=== PATIENT | male | born 1960 | race African-American/Black ===

== ENCOUNTER 2020-10-25 07:10 | Inpatient (IN) | payer MEDICAID ==
[~2020-10-25] VITALS: Ht 198.1 cm; Wt 98.0 kg
[~2020-10-25 07:10] MED LIST: CARI250T PO; HYDR-4833 PO
[2020-10-25 08:20] LABS: Basophils # (auto) 0 10 ^3/uL (0-0.2); Basophils % (auto) 0.5 % (0.0-2.0); Eosinophils # (auto) 0.1 10 ^3/uL (0-0.8); Eosinophils % (auto) 2.6 % (0.0-7.0); Hematocrit 26.2 % (41.0-53.0); Hemoglobin 8.5 g/dL (13.5-17.5); Lymphocytes # (auto) 0.8 10 ^3/uL (0.4-5.4); Lymphocytes % (auto) 21.6 % (10.0-50.0); Mean Corpuscular Hemoglobin 30.2 pg (28.0-32.0); Mean Corpuscular Hgb Conc. 32.6 g/dL (32.0-36.0); Mean Corpuscular Volume 92.6 fL (80.0-100.0); Monocytes # (auto) 0.2 10 ^3/uL (0-1.3); Monocytes % (auto) 5.7 % (0.0-12.0); Neutrophils # (auto) 2.7 10 ^3/uL (1.6-8.6); Neutrophils % (auto) 69.6 % (37.0-80.0); Nucleated Red Blood Cells % 0.1 %; Platelet Count (auto) 115 10^3/uL (140-450); Red Blood Cells 2.83 10^6/uL (4.5-5.90); Red Cell Distribution Width 15.6 % (11.8-14.3); White Blood Cell 3.9 10^3/uL (4.4-10.8)
[2020-10-25 08:39] LABS: Alanine Aminotransferase 8 U/L (16-61); Albumin 3.4 g/dL (3.4-5.0); Anion Gap 10 (5-15); Aspartate Aminotransferase 6 U/L (15-37); BUN/Creatinine Ratio 6.9; Calcium 9.6 mg/dL (8.5-10.1); Carbon Dioxide 23 mmol/L (21-32); Chloride 102 mmol/L (98-107); GFR African American 5 mL/min; GFR Non-African American 5 mL/min; Glucose 89 mg/dL (74-106); Magnesium 2.5 mg/dL (1.6-2.6); Potassium 5.5 mmol/L (3.5-5.1); Sodium 135 mmol/L (136-145)
[2020-10-25 08:44] LABS: Alkaline Phosphatase 81 U/L (45-117); Bilirubin, Total 0.4 mg/dL (0.2-1.0); Total Protein 7.1 g/dL (6.4-8.2)
[2020-10-25 08:45] LABS: Blood Urea Nitrogen 84 mg/dL (7-18)
[2020-10-25 10:00] LABS: INR 1.07 (0.9-1.15); Partial Thromboplastin Time 28.2 sec (23.0-31.2)
[2020-10-25] MEDS ORDERED: DEXTROSE (50%) 50ML SYRG IV ONE (10:00)
[2020-10-25] MEDS ORDERED: ALBUTEROL SULF 2.5 MG/0.5ML(0.5%) NEB SOLN NEB ONE (10:00)
[2020-10-25] MEDS ORDERED: SODIUM ZIRCONIUM CYCL 10 GM PAK PO ONE (10:00)
[2020-10-25] MEDS ORDERED: InsuLIN REG 1unit/0.01ml Soln (100units/ml) IV ONE (10:00)
[2020-10-25] MEDS ORDERED: HYDROcodone-ACET 5/325MG TAB PO PRN (11:15)
[2020-10-25] MEDS ORDERED: NITROGLYCERIN 0.4 MG SL TAB SL PRN (11:15)
[2020-10-25] MEDS ORDERED: ACETAMINOPHEN 500 MG TAB PO PRN (11:15)
[2020-10-25] MEDS ORDERED: MORPHINE SULF INJ 2 MG/ML SYRINGE 1ML IV PRN ×2 (11:15)
[2020-10-25] MEDS ORDERED: ONDANSETRON HCL 4 MG/2 ML VIAL IV PRN (11:15)
[2020-10-25] MEDS ORDERED: DEXTROSE (50%) 50ML SYRG IV PRN (11:15)
[2020-10-25] MEDS: InsuLIN REG 1unit/0.01ml Soln (100units/ml) SC SCH ×3 (11:30→22:00)
[2020-10-25] MEDS: ACCU-CHEK COMFORT CURVE STRIP VI SCH ×3 (11:30→21:58)
[2020-10-25] MEDS ORDERED: LABETALOL HCL 200 MG TAB PO ONE (12:00)
[2020-10-25] MEDS ORDERED: FAMOTIDINE 20 MG TAB PO ONE (12:00)
[2020-10-25] MEDS ORDERED: SODIUM CHL 0.9% 1000 ML BAG XX ONE (15:00)
[2020-10-25] MEDS ORDERED: HYDR50TA15 PO (16:28)
[2020-10-25] MEDS ORDERED: ATO40T PO (16:28)
[2020-10-25] MEDS ORDERED: NIFE90TA49 PO (16:28)
[2020-10-25] MEDS ORDERED: SEVE800T8 PO (16:28)
[2020-10-25] MEDS ORDERED: ACET-1156 PO (16:28)
[2020-10-25] MEDS ORDERED: CALC1TAB82 PO (16:28)
[2020-10-25] MEDS ORDERED: FURO1TAB32 PO (16:28)
[2020-10-25] MEDS ORDERED: FAMO20TA10 PO (16:28)
[2020-10-25] MEDS ORDERED: LINE1TAB6 PO (16:28)
[2020-10-25] MEDS ORDERED: CIPR500S2 PO (16:28)
[2020-10-25] MEDS ORDERED: CARV25TA55 PO (16:28)
[2020-10-25] MEDS ORDERED: CLON0.2D6 PO (16:28)
[2020-10-25] MEDS ORDERED: TERA2CAP45 PO (16:28)
[2020-10-25] MEDS: hydrALAZINE HCL 20 MG/ML VL IV PRN (17:43)
[2020-10-25 17:51] LABS: % Iron Saturation 26.6 % (20-55)
[2020-10-25] MEDS ORDERED: EPOETIN ALFA 10,000 UNIT/1 ML VIAL SC ONE (21:00)
[2020-10-25] MEDS: LABETALOL HCL 200 MG TAB PO SCH (21:58)
[2020-10-26] MEDS ORDERED: cloNIDine HCL 0.1 MG TAB PO ONE (00:30)
[2020-10-26 05:00] VITALS: BP 147/56
[2020-10-26] MEDS: ACCU-CHEK COMFORT CURVE STRIP VI SCH ×4 (06:19→22:00)
[2020-10-26] MEDS: InsuLIN REG 1unit/0.01ml Soln (100units/ml) SC SCH ×4 (06:19→22:00)
[2020-10-26 06:45] LABS: Basophils # (auto) 0 10 ^3/uL (0-0.2); Eosinophils # (auto) 0.1 10 ^3/uL (0-0.8); Lymphocytes # (auto) 0.7 10 ^3/uL (0.4-5.4)
[2020-10-26 06:47] LABS: Basophils % (auto) 0.6 % (0.0-2.0); Eosinophils % (auto) 2.8 % (0.0-7.0); Hematocrit 23.6 % (41.0-53.0); Hemoglobin 7.8 g/dL (13.5-17.5); Lymphocytes % (auto) 17.4 % (10.0-50.0); Mean Corpuscular Hemoglobin 30.5 pg (28.0-32.0); Mean Corpuscular Volume 92.5 fL (80.0-100.0); Monocytes # (auto) 0.2 10 ^3/uL (0-1.3); Monocytes % (auto) 4.2 % (0.0-12.0); Platelet Count (auto) 93 10^3/uL (140-450); Red Blood Cells 2.55 10^6/uL (4.5-5.90); Red Cell Distribution Width 15.6 % (11.8-14.3)
[2020-10-26 06:59] LABS: INR 1.07 (0.9-1.15); Partial Thromboplastin Time 26.9 sec (23.0-31.2)
[2020-10-26 07:01] LABS: Albumin 3.1 g/dL (3.4-5.0); Calcium 8.7 mg/dL (8.5-10.1); Potassium 4.8 mmol/L (3.5-5.1)
[2020-10-26 07:05] LABS: BUN/Creatinine Ratio 7.3; Bilirubin, Total 0.6 mg/dL (0.2-1.0); Total Protein 6.9 g/dL (6.4-8.2)
[2020-10-26 08:30] VITALS: BP 147/67
[2020-10-26] MEDS: FAMOTIDINE 20 MG TAB PO SCH (09:38)
[2020-10-26] MEDS: LABETALOL HCL 200 MG TAB PO SCH ×2 (09:39→22:50)
[2020-10-26] MEDS: ALBUTEROL SULF 2.5 MG/0.5ML(0.5%) NEB SOLN NEB PRN ×2 (11:30→19:02)
[2020-10-26 12:31] LABS: Hepatitis A Ab IgM Negative; Hepatitis B Core IgM Negative; Hepatitis B Surface Antigen Negative (Negative); Hepatitis C Antibody Negative (Negative)
[2020-10-26 13:00] VITALS: BP 160/67
[2020-10-26 13:30] VITALS: BP 147/67
[2020-10-26] MEDS ORDERED: METOCLOPRAMIDE HCL 5MG/ml INJ 2ml VIAL IV ONE (14:45)
[2020-10-26] MEDS ORDERED: ONDANSETRON HCL 4 MG/2 ML VIAL IV PRN (15:45)
[2020-10-26 16:29] VITALS: BP 150/83
[2020-10-26] MEDS: ONDANSETRON ODT 4 MG TAB PO PRN (20:24)
[2020-10-26 22:00] VITALS: BP 167/68
[2020-10-26] MEDS ORDERED: CIPROFLOXACIN HCL 500 MG TAB PO SCH ×2 (22:00)
[2020-10-26] MEDS: LINEZOLID 600MG TABLET PO SCH (22:50)
[2020-10-27] MEDS: cloNIDine HCL 0.1 MG TAB PO PRN ×3 (00:11→13:27)
[2020-10-27] MEDS: hydrALAZINE HCL 20 MG/ML VL IV PRN ×2 (01:45→08:32)
[2020-10-27] MEDS: ONDANSETRON ODT 4 MG TAB PO PRN ×3 (01:46→17:24)
[2020-10-27 05:12] VITALS: BP 137/60
[2020-10-27] MEDS: ACCU-CHEK COMFORT CURVE STRIP VI SCH ×3 (06:47→17:18)
[2020-10-27] MEDS: InsuLIN REG 1unit/0.01ml Soln (100units/ml) SC SCH ×3 (06:47→17:00)
[2020-10-27 06:51] LABS: Basophils # (auto) 0 10 ^3/uL (0-0.2); Eosinophils # (auto) 0 10 ^3/uL (0-0.8); Eosinophils % (auto) 0.1 % (0.0-7.0); Lymphocytes # (auto) 0.9 10 ^3/uL (0.4-5.4); Monocytes # (auto) 0.3 10 ^3/uL (0-1.3); Neutrophils # (auto) 2.5 10 ^3/uL (1.6-8.6); Nucleated Red Blood Cells % 0.1 %
[2020-10-27 06:53] LABS: Basophils % (auto) 0.9 % (0.0-2.0); Hematocrit 22.5 % (41.0-53.0); Hemoglobin 7.5 g/dL (13.5-17.5); Lymphocytes % (auto) 23.5 % (10.0-50.0); Mean Corpuscular Hemoglobin 30.8 pg (28.0-32.0); Mean Corpuscular Hgb Conc. 33.4 g/dL (32.0-36.0); Mean Corpuscular Volume 92.2 fL (80.0-100.0); Monocytes % (auto) 9.1 % (0.0-12.0); Neutrophils % (auto) 66.4 % (37.0-80.0); Platelet Count (auto) 78 10^3/uL (140-450); Red Blood Cells 2.44 10^6/uL (4.5-5.90); Red Cell Distribution Width 15.7 % (11.8-14.3); White Blood Cell 3.8 10^3/uL (4.4-10.8)
[2020-10-27] MEDS ORDERED: SODIUM CHL 0.9% 1000 ML BAG XX ONE (07:00)
[2020-10-27 07:06] LABS: Potassium 5.4 mmol/L (3.5-5.1)
[2020-10-27 07:17] LABS: Albumin 3.1 g/dL (3.4-5.0); BUN/Creatinine Ratio 7.7
[2020-10-27 07:35] LABS: % Iron Saturation 27.5 % (20-55)
[2020-10-27 08:00] VITALS: BP 163/67
[2020-10-27 09:00] VITALS: BP 155/70
[2020-10-27] MEDS: LINEZOLID 600MG TABLET PO SCH (11:08)
[2020-10-27] MEDS: FAMOTIDINE 20 MG TAB PO SCH (11:09)
[2020-10-27] MEDS: LABETALOL HCL 200 MG TAB PO SCH (11:09)
[2020-10-27 12:00] VITALS: BP 174/62
[2020-10-27 16:00] VITALS: BP 159/76
[2020-10-27 17:45] VITALS: BP 149/68
[2020-10-27] MEDS ORDERED: EPOETIN ALFA 10,000 UNIT/1 ML VIAL SC ONE (21:00)
== END 2020-10-27 20:30 | disposition home or self-care (01) | DRG 425 ==
LOC: ER 07:10 → TELE 07:11 → TELE-CENTR 18:04
PROVIDERS: ADMIT Nurse Practitioner Acute Care; ATTEND Internal Medicine
PROC: 5A1D70Z Performance of Urinary Filtration, Intermittent, Less than 6 Hours Per Day (ICD-10-PCS; principal; 2020-10-25)
PROC: 05HB33Z Insertion of Infusion Device into Right Basilic Vein, Percutaneous Approach (ICD-10-PCS; 2020-10-26)
PROC: B54MZZA Ultrasonography of Right Upper Extremity Veins, Guidance (ICD-10-PCS; 2020-10-26)
PROC: 5A1D70Z Performance of Urinary Filtration, Intermittent, Less than 6 Hours Per Day (ICD-10-PCS; 2020-10-27)
DX: E87.5 Hyperkalemia (principal); I13.2 Hypertensive heart and chronic kidney disease with heart failure and with stage 5 chronic kidney disease, or end stage renal disease; I50.21 Acute systolic (congestive) heart failure; E11.621 Type 2 diabetes mellitus with foot ulcer; N18.6 End stage renal disease; D63.1 Anemia in chronic kidney disease; E11.22 Type 2 diabetes mellitus with diabetic chronic kidney disease; E87.6 Hypokalemia; J45.909 Unspecified asthma, uncomplicated; L97.519 Non-pressure chronic ulcer of other part of right foot with unspecified severity; Z20.822 Contact with and (suspected) exposure to COVID-19; Z87.891 Personal history of nicotine dependence; Z99.2 Dependence on renal dialysis; Z91.15 Patient's noncompliance with renal dialysis; Z79.4 Long term (current) use of insulin
CPT/HCPCS: 36415; 71045; 80053; 80074; 82728; 82962; 83036; 83540; 83550; 83735; 83880; 84132; 84443; 84484; 85025; 85610; 85730; 87040; 87081; 87426; 90935; 93005; 94640; 96374; 96375; G0378; J0885; J1642; J1815; Q0162

== ENCOUNTER 2020-11-21 16:30 | Emergency (ER) | payer MEDICAID ==
[~2020-11-21] VITALS: Ht 193 cm; Wt 99.8 kg
[~2020-11-21 16:30] MED LIST changes: +ACET-1156 PO; +ATO40T PO; +CALC1TAB82 PO; +CARV25TA55 PO; +CIPR500S2 PO; +CLON0.2D6 PO; +FAMO20TA10 PO; +FURO1TAB32 PO; +HYDR50TA15 PO; +LINE1TAB6 PO; +NIFE90TA49 PO; +SEVE800T8 PO; +TERA2CAP45 PO
[2020-11-21 17:15] LABS: Basophils # (auto) 0 10 ^3/uL (0-0.2); Basophils % (auto) 0.9 % (0.0-2.0); Eosinophils # (auto) 0.1 10 ^3/uL (0-0.8); Lymphocytes # (auto) 0.8 10 ^3/uL (0.4-5.4); Mean Corpuscular Volume 94.2 fL (80.0-100.0); Monocytes # (auto) 0.2 10 ^3/uL (0-1.3); Neutrophils # (auto) 2.2 10 ^3/uL (1.6-8.6); White Blood Cell 3.2 10^3/uL (4.4-10.8)
[2020-11-21 17:17] LABS: Eosinophils % (auto) 1.8 % (0.0-7.0); Hematocrit 16.6 % (41.0-53.0); Lymphocytes % (auto) 23.9 % (10.0-50.0); Mean Corpuscular Hemoglobin 31.7 pg (28.0-32.0); Mean Corpuscular Hgb Conc. 33.7 g/dL (32.0-36.0); Monocytes % (auto) 6.3 % (0.0-12.0); Neutrophils % (auto) 67.1 % (37.0-80.0); Nucleated Red Blood Cells % 0.3 %; Platelet Count (auto) 166 10^3/uL (140-450); Red Blood Cells 1.76 10^6/uL (4.5-5.90)
[2020-11-21 17:22] LABS: Red Cell Distribution Width 20.3 % (11.8-14.3)
[2020-11-21 17:26] LABS: Hemoglobin 5.6 g/dL (13.5-17.5)
[2020-11-21 17:33] LABS: Albumin 3.3 g/dL (3.4-5.0); Calcium 9.3 mg/dL (8.5-10.1); Potassium 5.1 mmol/L (3.5-5.1)
[2020-11-21 17:36] LABS: BUN/Creatinine Ratio 6.8
[2020-11-21 17:41] LABS: INR 1.13 (0.9-1.15); Partial Thromboplastin Time 24.8 sec (23.0-31.2)
[2020-11-21 17:42] LABS: Bilirubin, Total 1.2 mg/dL (0.2-1.0); Total Protein 7.7 g/dL (6.4-8.2)
[2020-11-21] MEDS ORDERED: ONDANSETRON HCL 4 MG/2 ML VIAL IV ONE (19:30)
[2020-11-21 20:59] VITALS: BP 149/53
[2020-11-21 21:15] VITALS: BP 163/49
[2020-11-21 22:23] VITALS: BP 100/24
[2020-11-21 23:01] VITALS: BP 121/47
[2020-11-22] VITALS (11 sets, daily range): BP systolic 133–157; BP diastolic 43–57
[2020-11-22 08:34] LABS: Hematocrit 23.1 % (41.0-53.0)
== END 2020-11-22 09:48 | disposition home or self-care (01) ==
LOC: ER 16:30
DX: I12.0 Hypertensive chronic kidney disease with stage 5 chronic kidney disease or end stage renal disease (principal); E11.9 Type 2 diabetes mellitus without complications; N18.6 End stage renal disease; D63.1 Anemia in chronic kidney disease; I99.8 Other disorder of circulatory system; E78.5 Hyperlipidemia, unspecified; Z79.899 Other long term (current) drug therapy
CPT/HCPCS: 36415; 36430; 73700; 80053; 83880; 84443; 84484; 85014; 85018; 85025; 85610; 85730; 86850; 86900; 86901; 86920; 96374; 99285; J2405; J7040; P9016

== ENCOUNTER 2021-01-16 06:34 | Inpatient (IN) | payer MEDICAID ==
[2021-01-16] VITALS (54 sets, daily range): BP systolic 72–202; BP diastolic 36–96
[~2021-01-16] VITALS: Ht 185.4 cm; Wt 93.1 kg
[~2021-01-16 06:34] MED LIST changes: +ASPI-498 PO; -ATO40T PO; +ATOR-47 PO; +CALC1TAB53 PO; -CALC1TAB82 PO; +CALC667C PO; -CARI250T PO; -CARV25TA55 PO; +CARV6.2551 PO; -CIPR500S2 PO; +FERR-20 PO; +FOLI1TAB6 PO; -FURO1TAB32 PO; +GABA-339 PO; -HYDR-4833 PO; +HYDR100T22 PO; -HYDR50TA15 PO; +INSU1INJ21 SC; +ISOS1TAB28 PO; -LINE1TAB6 PO; +LISI20TA28 PO; +PANT40TA57 PO
[2021-01-16] MEDS ORDERED: LIDOCAINE 2%HCL (LOCAL ANESTH.) INJ 20ML MDV ONE (07:23)
[2021-01-16] MEDS ORDERED: ANGIOMAX 250 MG VIAL IV ONE (07:58)
[2021-01-16] MEDS ORDERED: diphenhdrAMINE HCL 50 MG/1 ML VL ONE ×2 (07:59→08:47)
[2021-01-16] MEDS ORDERED: SODIUM CHL 0.9% 50 ML ONE (07:59)
[2021-01-16] MEDS ORDERED: MIDAZOLAM HCL 2MG/2ML 2ml VIAL (1mg/ml) ONE (07:59)
[2021-01-16] MEDS ORDERED: fentaNYL CITRATE 100 MCG/2 ML VL ONE (07:59)
[2021-01-16] MEDS ORDERED: IODIXANOL 320MG/ML 100ML BTL IV ONE (08:19)
[2021-01-16] MEDS ORDERED: HEPARIN SODIUM (PORCINE) 5000 UNITS/ML 1ML VIAL ONE (08:23)
[2021-01-16] MEDS ORDERED: PROTAMINE SULFATE 10 MG/ML 5ML VIAL IV ONE (08:34)
[2021-01-16] MEDS ORDERED: TICAGRELOR 90 MG TAB ONE (09:01)
[2021-01-16] MEDS ORDERED: ASPirin 81 mg TAB ONE (09:01)
[2021-01-16] MEDS ORDERED: PATIENTS OWN MEDICATION (Folic Acid 1 TAB) PO SCH (10:00)
[2021-01-16] MEDS ORDERED: FERROUS SULFATE PO SCH (10:00)
[2021-01-16] MEDS ORDERED: MORPHINE SULFATE INJECTION 2 MG/ML SYRG IV PRN (10:00)
[2021-01-16] MEDS ORDERED: ACETAMINOPHEN 325 MG TAB PO PRN (10:00)
[2021-01-16] MEDS ORDERED: NITROGLYCERIN 0.4 MG SL TAB SL PRN (10:00)
[2021-01-16] MEDS ORDERED: TERAZOSIN HCL PO SCH (10:00)
[2021-01-16] MEDS ORDERED: IPRATROPIUM BROM 0.5 MG/2.5ML INH SOL NEB ONE (10:30)
[2021-01-16] MEDS ORDERED: METOPROLOL TARTRATE 1MG/1ML-5ML VIAL IV ONE ×2 (10:30→10:31)
[2021-01-16] MEDS ORDERED: FUROSEMIDE 20 MG/2 ML VIAL IV ONE (10:30)
[2021-01-16] MEDS ORDERED: ALBUTEROL SULF 2.5 MG/0.5ML(0.5%) NEB SOLN NEB ONE (10:30)
[2021-01-16] MEDS ORDERED: FUROSEMIDE 20 MG/2 ML VIAL ONE (10:31)
[2021-01-16] MEDS ORDERED: LORazepam 2MG/ML-1ML VIAL ONE (10:35)
[2021-01-16] MEDS ORDERED: hydrALAZINE HCL 20 MG/ML VL ONE (10:39)
[2021-01-16] MEDS ORDERED: hydrALAZINE HCL 20 MG/ML VL IV ONE (10:45)
[2021-01-16] MEDS ORDERED: LORazepam 2MG/ML-1ML VIAL IV ONE (10:45)
[2021-01-16] MEDS ORDERED: ROCURONIUM 10MG/ML 10ML VIAL IV ONE (10:52)
[2021-01-16] MEDS ORDERED: ETOMIDATE (2MG/ML) 20ML VIAL IV ONE ×2 (10:52→10:53)
[2021-01-16] MEDS ORDERED: SUCCINYLCHOLINE CHLORIDE 20 MG/ML 10ML VIAL IV ONE (10:53)
[2021-01-16] MEDS ORDERED: MIDAZOLAM HCL 5 MG/ML-1ML VIAL ONE (10:54)
[2021-01-16] MEDS ORDERED: MIDAZOLAM DRIP 50 mg/50mL 50 ML IV ONE (10:55)
[2021-01-16] MEDS ORDERED: fentaNYL Drip 2500mCg/250mlNS 250 ML IV SCH (12:00)
[2021-01-16] MEDS ORDERED: PATIENTS OWN MEDICATION (Sevelamer Carbonate (Renvela) 1 TAB) PO SCH (12:00)
[2021-01-16] MEDS: SEVELAMER 800 MG TAB PO SCH ×2 (12:00→18:07)
[2021-01-16] MEDS: CALCIUM ACETATE 667 MG CAP PO SCH ×2 (12:00→18:07)
[2021-01-16] MEDS: NOREPINEPHRINE 8 MG/250ML KIT 250 ML IV SCH ×2 (12:00→23:16)
[2021-01-16 12:07] LABS: Basophils # (auto) 0 10 ^3/uL (0-0.2); Basophils % (auto) 0.6 % (0.0-2.0); Eosinophils # (auto) 0.1 10 ^3/uL (0-0.8); Eosinophils % (auto) 0.8 % (0.0-7.0); Hematocrit 33.3 % (41.0-53.0); Hemoglobin 10.2 g/dL (13.5-17.5); Lymphocytes # (auto) 0.7 10 ^3/uL (0.4-5.4); Lymphocytes % (auto) 10.4 % (10.0-50.0); Mean Corpuscular Hemoglobin 34.4 pg (28.0-32.0); Mean Corpuscular Hgb Conc. 30.6 g/dL (32.0-36.0); Mean Corpuscular Volume 112.4 fL (80.0-100.0); Monocytes # (auto) 0.2 10 ^3/uL (0-1.3); Monocytes % (auto) 2.7 % (0.0-12.0); Neutrophils # (auto) 5.6 10 ^3/uL (1.6-8.6); Neutrophils % (auto) 85.5 % (37.0-80.0); Nucleated Red Blood Cells % 0.1 %; Red Blood Cells 2.97 10^6/uL (4.5-5.90); White Blood Cell 6.6 10^3/uL (4.4-10.8)
[2021-01-16 12:12] LABS: Red Cell Distribution Width 20.3 % (11.8-14.3)
[2021-01-16] MEDS: MIDAZOLAM DRIP 50 mg/50mL 50 ML IV SCH ×2 (12:15→23:17)
[2021-01-16] MEDS ORDERED: NOREPINEPHRINE 8 MG/250ML KIT 250 ML IV SCH (12:15)
[2021-01-16] MEDS: fentaNYL Drip 2500mCg/250mlNS 250 ML IV SCH ×2 (12:15→23:19)
[2021-01-16 12:18] LABS: Potassium 4.9 mmol/L (3.5-5.1)
[2021-01-16 12:29] LABS: Albumin 3.1 g/dL (3.4-5.0); BUN/Creatinine Ratio 7.1; Bilirubin, Total 1.2 mg/dL (0.2-1.0); Calcium 9.1 mg/dL (8.5-10.1); Total Protein 7.4 g/dL (6.4-8.2)
[2021-01-16] MEDS ORDERED: DEXTROSE (50%) 50ML SYRG IV PRN (12:45)
[2021-01-16] MEDS: CALCIUM W/VIT D (600MG/400IU) TAB PO SCH ×2 (14:00→20:59)
[2021-01-16] MEDS: hydrALAZINE HCL 25 MG TAB PO SCH ×2 (14:00→20:56)
[2021-01-16] MEDS ORDERED: HYDRALAZINE HCL PO SCH (14:00)
[2021-01-16] MEDS: InsuLIN REG 1unit/0.01ml Soln (100units/ml) SC SCH (18:00)
[2021-01-16] MEDS ORDERED: PATIENTS OWN MEDICATION (Atorvastatin Calcium 1 TAB) PO SCH (18:00)
[2021-01-16] MEDS: PANTOPRAZOLE 40 MG TAB PO SCH (18:07)
[2021-01-16] MEDS: ACCU-CHEK COMFORT CURVE STRIP VI SCH (18:08)
[2021-01-16] MEDS ORDERED: CLOPIDOGREL 300 MG TAB PO ONE (18:30)
[2021-01-16] MEDS: TERAZOSIN HCL 1 MG CAP PO SCH (20:58)
[2021-01-16] MEDS: ATORVASTATIN 20 MG TAB PO SCH (20:59)
[2021-01-16] MEDS: FAMOTIDINE 20 MG TAB PO SCH (20:59)
[2021-01-17] VITALS (93 sets, daily range): BP systolic 89–144; BP diastolic 33–51
[2021-01-17 04:02] LABS: Basophils # (auto) 0.1 10 ^3/uL (0-0.2); Eosinophils # (auto) 0.1 10 ^3/uL (0-0.8); Hemoglobin 9.3 g/dL (13.5-17.5); Neutrophils # (auto) 5.3 10 ^3/uL (1.6-8.6); Nucleated Red Blood Cells % 0.1 %
[2021-01-17 04:03] LABS: Eosinophils % (auto) 1.3 % (0.0-7.0); Hematocrit 27.3 % (41.0-53.0); Lymphocytes % (auto) 14.1 % (10.0-50.0); Mean Corpuscular Hemoglobin 36.1 pg (28.0-32.0); Mean Corpuscular Volume 106.3 fL (80.0-100.0); Monocytes # (auto) 0.5 10 ^3/uL (0-1.3); Monocytes % (auto) 7.1 % (0.0-12.0); Neutrophils % (auto) 76.5 % (37.0-80.0); Red Blood Cells 2.57 10^6/uL (4.5-5.90); Red Cell Distribution Width 19.2 % (11.8-14.3); White Blood Cell 6.9 10^3/uL (4.4-10.8)
[2021-01-17 04:20] LABS: BUN/Creatinine Ratio 7.1; Calcium 9.1 mg/dL (8.5-10.1); Potassium 4.9 mmol/L (3.5-5.1)
[2021-01-17] MEDS: InsuLIN REG 1unit/0.01ml Soln (100units/ml) SC SCH ×4 (06:00→17:39)
[2021-01-17] MEDS: MIDAZOLAM DRIP 50 mg/50mL 50 ML IV SCH ×2 (06:16→14:02)
[2021-01-17] MEDS: CALCIUM W/VIT D (600MG/400IU) TAB PO SCH ×3 (06:22→22:22)
[2021-01-17] MEDS: hydrALAZINE HCL 25 MG TAB PO SCH ×3 (06:23→22:00)
[2021-01-17] MEDS: ACCU-CHEK COMFORT CURVE STRIP VI SCH ×4 (06:24→17:39)
[2021-01-17] MEDS ORDERED: PATIENTS OWN MEDICATION (Carvedilol 1 TAB) PO SCH (07:00)
[2021-01-17] MEDS: LISINOPRIL 20 MG TAB PO SCH (07:00)
[2021-01-17] MEDS ORDERED: PATIENTS OWN MEDICATION (Gabapentin 1 TAB) PO SCH (07:00)
[2021-01-17] MEDS ORDERED: PATIENTS OWN MEDICATION (Nifedipine (Nifedipine Er) 1 TAB) PO SCH (07:00)
[2021-01-17] MEDS: NIFEdipine ER 30 MG TAB PO SCH (07:00)
[2021-01-17] MEDS: CARVEDILOL 3.125 MG TAB PO SCH (07:00)
[2021-01-17] MEDS ORDERED: PATIENTS OWN MEDICATION (Isosorbide Mononitrate (Isosorbide Mononitrate Er) 1 TAB) PO SCH (07:00)
[2021-01-17] MEDS: CALCIUM ACETATE 667 MG CAP PO SCH ×3 (07:35→17:38)
[2021-01-17] MEDS: SEVELAMER 800 MG TAB PO SCH ×3 (07:36→17:39)
[2021-01-17] MEDS: GABAPENTIN 300 MG CAP PO SCH (07:36)
[2021-01-17] MEDS: ISOSORBIDE MONONITRATE ER 60 MG TAB PO SCH (07:37)
[2021-01-17] MEDS: ASPirin-EC 81 mg tab PO SCH (09:33)
[2021-01-17] MEDS: FOLIC ACID 1 MG TAB PO SCH (09:33)
[2021-01-17] MEDS: FERROUS SULFATE 325mg EC TAB PO SCH (09:33)
[2021-01-17] MEDS: CLOPIDOGREL BISULFATE 75 MG TAB PO SCH (09:34)
[2021-01-17] MEDS ORDERED: SODIUM CHL 0.9% 1000 ML BAG XX ONE (09:45)
[2021-01-17] MEDS: TERAZOSIN HCL 1 MG CAP PO SCH ×2 (10:00→22:00)
[2021-01-17] MEDS: fentaNYL Drip 2500mCg/250mlNS 250 ML IV SCH (17:20)
[2021-01-17] MEDS: PANTOPRAZOLE 40 MG TAB PO SCH (17:38)
[2021-01-17] MEDS: ATORVASTATIN 20 MG TAB PO SCH (22:08)
[2021-01-17] MEDS: FAMOTIDINE 20 MG TAB PO SCH (22:08)
[2021-01-18] VITALS (98 sets, daily range): BP systolic 92–154; BP diastolic 36–59
[2021-01-18] MEDS: ACCU-CHEK COMFORT CURVE STRIP VI SCH ×4 (00:16→17:40)
[2021-01-18 04:08] LABS: Basophils # (auto) 0 10 ^3/uL (0-0.2); Basophils % (auto) 0.5 % (0.0-2.0); Hemoglobin 8.7 g/dL (13.5-17.5); Lymphocytes # (auto) 0.4 10 ^3/uL (0.4-5.4); Monocytes # (auto) 0.5 10 ^3/uL (0-1.3); Neutrophils # (auto) 6.2 10 ^3/uL (1.6-8.6); Neutrophils % (auto) 86.8 % (37.0-80.0)
[2021-01-18 04:09] LABS: Eosinophils # (auto) 0.1 10 ^3/uL (0-0.8); Eosinophils % (auto) 0.8 % (0.0-7.0); Hematocrit 25.4 % (41.0-53.0); Lymphocytes % (auto) 5.2 % (10.0-50.0); Mean Corpuscular Hgb Conc. 34.2 g/dL (32.0-36.0); Mean Corpuscular Volume 105.2 fL (80.0-100.0); Monocytes % (auto) 6.7 % (0.0-12.0); Red Blood Cells 2.42 10^6/uL (4.5-5.90); Red Cell Distribution Width 18.2 % (11.8-14.3); White Blood Cell 7.1 10^3/uL (4.4-10.8)
[2021-01-18 04:25] LABS: BUN/Creatinine Ratio 6.8; Calcium 9.1 mg/dL (8.5-10.1); Potassium 4.7 mmol/L (3.5-5.1)
[2021-01-18] MEDS: hydrALAZINE HCL 25 MG TAB PO SCH ×3 (06:00→21:42)
[2021-01-18] MEDS: InsuLIN REG 1unit/0.01ml Soln (100units/ml) SC SCH ×4 (06:00→17:40)
[2021-01-18] MEDS: CALCIUM W/VIT D (600MG/400IU) TAB PO SCH ×3 (06:17→21:43)
[2021-01-18] MEDS: GABAPENTIN 300 MG CAP PO SCH (06:46)
[2021-01-18] MEDS: ISOSORBIDE MONONITRATE ER 60 MG TAB PO SCH (07:00)
[2021-01-18] MEDS: CARVEDILOL 3.125 MG TAB PO SCH (07:00)
[2021-01-18] MEDS: LISINOPRIL 20 MG TAB PO SCH (07:00)
[2021-01-18] MEDS: NIFEdipine ER 30 MG TAB PO SCH (07:00)
[2021-01-18] MEDS: SEVELAMER 800 MG TAB PO SCH ×3 (07:44→17:40)
[2021-01-18] MEDS: CALCIUM ACETATE 667 MG CAP PO SCH ×3 (07:44→17:39)
[2021-01-18] MEDS: FERROUS SULFATE 325mg EC TAB PO SCH (09:41)
[2021-01-18] MEDS: FOLIC ACID 1 MG TAB PO SCH (09:41)
[2021-01-18] MEDS: ASPirin-EC 81 mg tab PO SCH (09:41)
[2021-01-18] MEDS: CLOPIDOGREL BISULFATE 75 MG TAB PO SCH (09:42)
[2021-01-18] MEDS: TERAZOSIN HCL 1 MG CAP PO SCH ×2 (09:42→21:42)
[2021-01-18] MEDS: NOREPINEPHRINE 8 MG/250ML KIT 250 ML IV SCH (09:42)
[2021-01-18] MEDS ORDERED: HYDROmorphone HCL 2 MG/ML VL IV PRN (14:30)
[2021-01-18] MEDS: PANTOPRAZOLE 40 MG TAB PO SCH (17:39)
[2021-01-18] MEDS: ATORVASTATIN 20 MG TAB PO SCH (21:43)
[2021-01-18] MEDS: FAMOTIDINE 20 MG TAB PO SCH (21:43)
[2021-01-19] VITALS (74 sets, daily range): BP systolic 93–176; BP diastolic 38–63
[2021-01-19] MEDS: ACCU-CHEK COMFORT CURVE STRIP VI SCH ×4 (00:22→19:04)
[2021-01-19 05:22] LABS: Basophils # (auto) 0 10 ^3/uL (0-0.2); Basophils % (auto) 0.4 % (0.0-2.0); Eosinophils # (auto) 0.2 10 ^3/uL (0-0.8); Hemoglobin 8.2 g/dL (13.5-17.5); Lymphocytes # (auto) 0.5 10 ^3/uL (0.4-5.4); White Blood Cell 5.3 10^3/uL (4.4-10.8)
[2021-01-19 05:24] LABS: Eosinophils % (auto) 3.1 % (0.0-7.0); Hematocrit 23.7 % (41.0-53.0); Lymphocytes % (auto) 10.1 % (10.0-50.0); Mean Corpuscular Hgb Conc. 34.6 g/dL (32.0-36.0); Monocytes # (auto) 0.4 10 ^3/uL (0-1.3); Monocytes % (auto) 8.2 % (0.0-12.0); Neutrophils # (auto) 4.1 10 ^3/uL (1.6-8.6); Neutrophils % (auto) 78.2 % (37.0-80.0); Red Blood Cells 2.28 10^6/uL (4.5-5.90); Red Cell Distribution Width 17.6 % (11.8-14.3)
[2021-01-19 05:46] LABS: BUN/Creatinine Ratio 7.5; Calcium 9.3 mg/dL (8.5-10.1)
[2021-01-19] MEDS: CALCIUM W/VIT D (600MG/400IU) TAB PO SCH ×3 (06:00→21:59)
[2021-01-19] MEDS: InsuLIN REG 1unit/0.01ml Soln (100units/ml) SC SCH ×4 (06:00→18:30)
[2021-01-19] MEDS: hydrALAZINE HCL 25 MG TAB PO SCH ×3 (06:00→21:59)
[2021-01-19] MEDS: CARVEDILOL 3.125 MG TAB PO SCH (07:00)
[2021-01-19] MEDS: NIFEdipine ER 30 MG TAB PO SCH (07:00)
[2021-01-19] MEDS: ISOSORBIDE MONONITRATE ER 60 MG TAB PO SCH (07:00)
[2021-01-19] MEDS: LISINOPRIL 20 MG TAB PO SCH (07:00)
[2021-01-19] MEDS ORDERED: SODIUM CHL 0.9% 1000 ML BAG XX ONE (07:00)
[2021-01-19] MEDS: GABAPENTIN 300 MG CAP PO SCH (07:00)
[2021-01-19] MEDS: CALCIUM ACETATE 667 MG CAP PO SCH ×3 (08:00→18:29)
[2021-01-19] MEDS: SEVELAMER 800 MG TAB PO SCH ×3 (08:00→18:29)
[2021-01-19] MEDS: CLOPIDOGREL BISULFATE 75 MG TAB PO SCH (09:46)
[2021-01-19] MEDS: TERAZOSIN HCL 1 MG CAP PO SCH ×2 (09:46→22:00)
[2021-01-19] MEDS: FERROUS SULFATE 325mg EC TAB PO SCH (09:47)
[2021-01-19] MEDS: FOLIC ACID 1 MG TAB PO SCH (09:47)
[2021-01-19] MEDS: ASPirin-EC 81 mg tab PO SCH (09:47)
[2021-01-19] MEDS: NOREPINEPHRINE 8 MG/250ML KIT 250 ML IV SCH (12:00)
[2021-01-19] MEDS: PANTOPRAZOLE 40 MG TAB PO SCH (18:29)
[2021-01-19] MEDS: FAMOTIDINE 20 MG TAB PO SCH (21:58)
[2021-01-19] MEDS: ATORVASTATIN 20 MG TAB PO SCH (21:59)
[2021-01-20] VITALS (50 sets, daily range): BP systolic 109–184; BP diastolic 45–67
[2021-01-20] MEDS: InsuLIN REG 1unit/0.01ml Soln (100units/ml) SC SCH ×5 (06:00→23:49)
[2021-01-20] MEDS: hydrALAZINE HCL 25 MG TAB PO SCH ×3 (06:18→21:04)
[2021-01-20] MEDS: CALCIUM W/VIT D (600MG/400IU) TAB PO SCH ×3 (06:18→21:07)
[2021-01-20] MEDS: ACCU-CHEK COMFORT CURVE STRIP VI SCH ×5 (06:18→23:49)
[2021-01-20] MEDS: ISOSORBIDE MONONITRATE ER 60 MG TAB PO SCH (06:20)
[2021-01-20] MEDS: CARVEDILOL 3.125 MG TAB PO SCH (06:20)
[2021-01-20] MEDS: GABAPENTIN 300 MG CAP PO SCH (06:21)
[2021-01-20] MEDS: LISINOPRIL 20 MG TAB PO SCH (06:21)
[2021-01-20] MEDS: NIFEdipine ER 30 MG TAB PO SCH (06:41)
[2021-01-20] MEDS: SEVELAMER 800 MG TAB PO SCH ×3 (07:53→17:59)
[2021-01-20] MEDS: CALCIUM ACETATE 667 MG CAP PO SCH ×3 (07:53→17:59)
[2021-01-20] MEDS: FERROUS SULFATE 325mg EC TAB PO SCH (10:25)
[2021-01-20] MEDS: CLOPIDOGREL BISULFATE 75 MG TAB PO SCH (10:25)
[2021-01-20] MEDS: ASPirin-EC 81 mg tab PO SCH (10:25)
[2021-01-20] MEDS: FOLIC ACID 1 MG TAB PO SCH (10:25)
[2021-01-20] MEDS: TERAZOSIN HCL 1 MG CAP PO SCH ×2 (10:48→21:03)
[2021-01-20] MEDS: NOREPINEPHRINE 8 MG/250ML KIT 250 ML IV SCH (12:00)
[2021-01-20] MEDS: PANTOPRAZOLE 40 MG TAB PO SCH (17:59)
[2021-01-20] MEDS: FAMOTIDINE 20 MG TAB PO SCH (21:05)
[2021-01-20] MEDS: ATORVASTATIN 20 MG TAB PO SCH (21:07)
[2021-01-21 05:00] VITALS: BP 172/67
[2021-01-21] MEDS: ACCU-CHEK COMFORT CURVE STRIP VI SCH ×4 (05:46→23:09)
[2021-01-21] MEDS: CALCIUM W/VIT D (600MG/400IU) TAB PO SCH ×3 (05:51→21:29)
[2021-01-21] MEDS: hydrALAZINE HCL 25 MG TAB PO SCH ×3 (05:51→21:28)
[2021-01-21] MEDS: InsuLIN REG 1unit/0.01ml Soln (100units/ml) SC SCH ×4 (05:58→23:09)
[2021-01-21 06:36] LABS: BUN/Creatinine Ratio 6.8; Calcium 9.6 mg/dL (8.5-10.1); Potassium 4.8 mmol/L (3.5-5.1)
[2021-01-21] MEDS: NIFEdipine ER 30 MG TAB PO SCH (06:41)
[2021-01-21] MEDS: CARVEDILOL 3.125 MG TAB PO SCH (06:42)
[2021-01-21] MEDS: ISOSORBIDE MONONITRATE ER 60 MG TAB PO SCH (06:43)
[2021-01-21] MEDS: LISINOPRIL 20 MG TAB PO SCH (06:44)
[2021-01-21] MEDS: GABAPENTIN 300 MG CAP PO SCH (06:45)
[2021-01-21] MEDS: SEVELAMER 800 MG TAB PO SCH ×3 (07:45→17:37)
[2021-01-21] MEDS: CALCIUM ACETATE 667 MG CAP PO SCH ×3 (07:45→17:37)
[2021-01-21 09:00] VITALS: BP 129/52
[2021-01-21] MEDS: FERROUS SULFATE 325mg EC TAB PO SCH (10:14)
[2021-01-21] MEDS: FOLIC ACID 1 MG TAB PO SCH (10:14)
[2021-01-21] MEDS: CLOPIDOGREL BISULFATE 75 MG TAB PO SCH (10:14)
[2021-01-21] MEDS: ASPirin-EC 81 mg tab PO SCH (10:14)
[2021-01-21] MEDS: TERAZOSIN HCL 1 MG CAP PO SCH ×2 (11:25→22:00)
[2021-01-21] MEDS ORDERED: HYDROmorphone HCL 2 MG/ML VL IV PRN (11:45)
[2021-01-21 12:47] VITALS: BP 125/47
[2021-01-21 17:00] VITALS: BP 134/45
[2021-01-21] MEDS: PANTOPRAZOLE 40 MG TAB PO SCH (17:37)
[2021-01-21 21:15] VITALS: BP 145/55
[2021-01-21] MEDS: ATORVASTATIN 20 MG TAB PO SCH (21:28)
[2021-01-21] MEDS: FAMOTIDINE 20 MG TAB PO SCH (21:29)
[2021-01-22] MEDS: hydrALAZINE HCL 25 MG TAB PO SCH ×2 (04:52→15:24)
[2021-01-22] MEDS: CALCIUM W/VIT D (600MG/400IU) TAB PO SCH ×2 (04:53→15:24)
[2021-01-22 04:54] VITALS: BP 150/58
[2021-01-22] MEDS: InsuLIN REG 1unit/0.01ml Soln (100units/ml) SC SCH ×3 (05:00→17:46)
[2021-01-22] MEDS: ACCU-CHEK COMFORT CURVE STRIP VI SCH ×3 (05:00→17:46)
[2021-01-22 05:55] LABS: Hemoglobin 7.8 g/dL (13.5-17.5)
[2021-01-22 05:57] LABS: Hematocrit 22.5 % (41.0-53.0)
[2021-01-22] MEDS: NIFEdipine ER 30 MG TAB PO SCH (06:18)
[2021-01-22] MEDS: GABAPENTIN 300 MG CAP PO SCH (06:18)
[2021-01-22] MEDS: ISOSORBIDE MONONITRATE ER 60 MG TAB PO SCH (06:18)
[2021-01-22] MEDS: CARVEDILOL 3.125 MG TAB PO SCH (06:19)
[2021-01-22] MEDS: LISINOPRIL 20 MG TAB PO SCH (06:19)
[2021-01-22] MEDS ORDERED: SODIUM CHL 0.9% 1000 ML BAG XX ONE (07:00)
[2021-01-22] MEDS: SEVELAMER 800 MG TAB PO SCH ×3 (08:00→17:45)
[2021-01-22] MEDS: CALCIUM ACETATE 667 MG CAP PO SCH ×3 (08:00→17:45)
[2021-01-22 08:50] VITALS: BP 154/64
[2021-01-22] MEDS: FERROUS SULFATE 325mg EC TAB PO SCH (11:39)
[2021-01-22] MEDS: FOLIC ACID 1 MG TAB PO SCH (11:39)
[2021-01-22] MEDS: ASPirin-EC 81 mg tab PO SCH (11:39)
[2021-01-22] MEDS: CLOPIDOGREL BISULFATE 75 MG TAB PO SCH (11:39)
[2021-01-22] MEDS: TERAZOSIN HCL 1 MG CAP PO SCH (11:56)
[2021-01-22 13:00] VITALS: BP 149/57
[2021-01-22] MEDS ORDERED: ATOR-47 PO (13:00)
[2021-01-22] MEDS ORDERED: CLOP75TA28 PO (13:00)
[2021-01-22] MEDS ORDERED: ASPI-498 PO (13:00)
[2021-01-22 15:59] VITALS: BP 149/57
[2021-01-22 16:55] VITALS: BP 131/47
[2021-01-22] MEDS: PANTOPRAZOLE 40 MG TAB PO SCH (17:45)
[2021-01-22] MEDS ORDERED: EPOETIN ALFA-EPBX 10,000 UNIT/1ML VIAL SC ONE (21:00)
== END 2021-01-22 18:30 | disposition home health service (06) | DRG 175 ==
LOC: CATH 06:34 → TELE 09:46 → ICU WEST 11:21 → TELE-WESTW 01-20 17:20
PROVIDERS: ADMIT Internal Medicine; ATTEND Hospitalist
PROC: B41G1ZZ Fluoroscopy of Left Lower Extremity Arteries using Low Osmolar Contrast (ICD-10-PCS; principal; 2021-01-16)
PROC: 027034Z Dilation of Coronary Artery, One Artery with Drug-eluting Intraluminal Device, Percutaneous Approach (ICD-10-PCS; 2021-01-16)
PROC: 02C03ZZ Extirpation of Matter from Coronary Artery, One Artery, Percutaneous Approach (ICD-10-PCS; 2021-01-16)
PROC: 5A1945Z Respiratory Ventilation, 24-96 Consecutive Hours (ICD-10-PCS; 2021-01-16)
PROC: 0BH17EZ Insertion of Endotracheal Airway into Trachea, Via Natural or Artificial Opening (ICD-10-PCS; 2021-01-16)
PROC: 02HV33Z Insertion of Infusion Device into Superior Vena Cava, Percutaneous Approach (ICD-10-PCS; 2021-01-16)
PROC: 5A1D70Z Performance of Urinary Filtration, Intermittent, Less than 6 Hours Per Day (ICD-10-PCS; 2021-01-16)
PROC: 5A1D70Z Performance of Urinary Filtration, Intermittent, Less than 6 Hours Per Day (ICD-10-PCS; 2021-01-19)
DX: I25.10 Atherosclerotic heart disease of native coronary artery without angina pectoris (principal); J96.01 Acute respiratory failure with hypoxia; Z99.11 Dependence on respirator [ventilator] status; I13.2 Hypertensive heart and chronic kidney disease with heart failure and with stage 5 chronic kidney disease, or end stage renal disease; E11.22 Type 2 diabetes mellitus with diabetic chronic kidney disease; N18.6 End stage renal disease; Z20.822 Contact with and (suspected) exposure to COVID-19; Z99.2 Dependence on renal dialysis; D63.1 Anemia in chronic kidney disease; J98.11 Atelectasis; K21.9 Gastro-esophageal reflux disease without esophagitis; I50.43 Acute on chronic combined systolic (congestive) and diastolic (congestive) heart failure; D75.89 Other specified diseases of blood and blood-forming organs; E11.51 Type 2 diabetes mellitus with diabetic peripheral angiopathy without gangrene; E78.00 Pure hypercholesterolemia, unspecified; I25.2 Old myocardial infarction; Z79.4 Long term (current) use of insulin; Z79.82 Long term (current) use of aspirin; Z79.899 Other long term (current) drug therapy; Z82.49 Family history of ischemic heart disease and other diseases of the circulatory system; Z83.3 Family history of diabetes mellitus
CPT/HCPCS: 36415; 36600; 71045; 80048; 80053; 82805; 82962; 85014; 85018; 85025; 86850; 86900; 86901; 86920; 87070; 87081; 87205; 87340; 90935; 92933; 93005; 93306; 94002; 94003; 94640; 97116; 97530; 99152; 99153; C1724; C1769; C1874; G0378; J0330; J1642; J2250; J7060; Q9967

== ENCOUNTER 2021-05-17 23:42 | Emergency (ER) | payer MEDICAID ==
[~2021-05-17] VITALS: Ht 193 cm; Wt 93.0 kg
[~2021-05-17 23:42] MED LIST changes: +CLOP75TA28 PO
[2021-05-17 23:56] VITALS: BP 123/31
== END 2021-05-18 02:21 | disposition left against medical advice (07) ==
LOC: ER 23:42
DX: R06.02 Shortness of breath (principal); Z53.21 Procedure and treatment not carried out due to patient leaving prior to being seen by health care provider
CPT/HCPCS: 93005

== ENCOUNTER 2021-06-12 23:19 | Emergency (ER) | payer MEDICAID ==
[~2021-06-12] VITALS: Ht 193 cm; Wt 93.0 kg
[2021-06-12 23:31] VITALS: BP 149/46
== END 2021-06-13 03:14 | disposition left against medical advice (07) ==
LOC: ER 23:19
DX: R06.02 Shortness of breath (principal); Z53.21 Procedure and treatment not carried out due to patient leaving prior to being seen by health care provider
CPT/HCPCS: 71045

== ENCOUNTER 2021-06-24 06:27 | Emergency (ER) | payer MEDICAID ==
[~2021-06-24] VITALS: Ht 193 cm; Wt 93.0 kg
[2021-06-24 06:28] VITALS: BP 133/86
[2021-06-24] MEDS ORDERED: FUROSEMIDE 40 MG/4 ML VIAL IV ONE (08:00)
== END 2021-06-24 08:50 | disposition left against medical advice (07) ==
LOC: ER 06:27
DX: I13.2 Hypertensive heart and chronic kidney disease with heart failure and with stage 5 chronic kidney disease, or end stage renal disease (principal); I50.9 Heart failure, unspecified; N18.6 End stage renal disease; E11.22 Type 2 diabetes mellitus with diabetic chronic kidney disease; E78.5 Hyperlipidemia, unspecified; Z99.2 Dependence on renal dialysis; Z87.891 Personal history of nicotine dependence

== ENCOUNTER 2021-07-15 10:18 | Inpatient (IN) | payer MEDICAID ==
[~2021-07-15] VITALS: Ht 193 cm; Wt 89.3 kg
[2021-07-15 11:25] LABS: Albumin 3.2 g/dL (3.4-5.0); Calcium 9.3 mg/dL (8.5-10.1)
[2021-07-15 11:30] LABS: BUN/Creatinine Ratio 7.1; Bilirubin, Total 0.7 mg/dL (0.2-1.0); Total Protein 7.6 g/dL (6.4-8.2)
[2021-07-15 11:37] LABS: Basophils # (auto) 0 10 ^3/uL (0-0.2); Basophils % (auto) 0.7 % (0.0-2.0); Eosinophils # (auto) 0 10 ^3/uL (0-0.8); Hematocrit 23.8 % (41.0-53.0); Hemoglobin 7.8 g/dL (13.5-17.5); Lymphocytes # (auto) 0.5 10 ^3/uL (0.4-5.4); Lymphocytes % (auto) 8.9 % (10.0-50.0); Mean Corpuscular Hemoglobin 35.8 pg (28.0-32.0); Mean Corpuscular Hgb Conc. 32.9 g/dL (32.0-36.0); Monocytes # (auto) 0.2 10 ^3/uL (0-1.3); Monocytes % (auto) 3.3 % (0.0-12.0); Neutrophils # (auto) 5.1 10 ^3/uL (1.6-8.6); Neutrophils % (auto) 87.1 % (37.0-80.0); Nucleated Red Blood Cells % 0.1 %; Red Blood Cells 2.19 10^6/uL (4.5-5.90); Red Cell Distribution Width 17.5 % (11.8-14.3); White Blood Cell 5.9 10^3/uL (4.4-10.8)
[2021-07-15 11:40] LABS: Potassium 6.3 mmol/L (3.5-5.1)
[2021-07-15] MEDS ORDERED: ASPirin 81 mg TAB PO ONE (12:00)
[2021-07-15] MEDS ORDERED: CLOPIDOGREL BISULFATE 75 MG TAB PO ONE (12:00)
[2021-07-15] MEDS ORDERED: DEXTROSE (50%) 50ML SYRG IV ONE (12:30)
[2021-07-15] MEDS ORDERED: SODIUM BICARBONATE 8.4% INJ 50ML SYRINGE IV ONE (12:30)
[2021-07-15] MEDS ORDERED: CALCIUM GLUC 1,000mg/50ml-NS 50 ML IV ONE (12:30)
[2021-07-15] MEDS ORDERED: ALBUTEROL SULF 2.5 MG/0.5ML(0.5%) NEB SOLN NEB ONE (12:30)
[2021-07-15] MEDS ORDERED: InsuLIN REG 1unit/0.01ml Soln (100units/ml) IV ONE (12:30)
[2021-07-15] MEDS ORDERED: FUROSEMIDE 20 MG/2 ML VIAL IV ONE (12:30)
[2021-07-15] MEDS ORDERED: ONDANSETRON HCL 4 MG/2 ML VIAL IV ONE ×2 (12:45→15:00)
[2021-07-15] MEDS ORDERED: LABETALOL HCL 5 MG/ML 4ML SYRINGE IV ONE (13:00)
[2021-07-15] MEDS: SODIUM ZIRCONIUM CYCL 10 GM PAK PO SCH ×2 (14:29→23:03)
[2021-07-15] MEDS ORDERED: MORPHINE SULFATE 4 MG/ML SYR/VIAL IV ONE (15:00)
[2021-07-15] MEDS ORDERED: NITROGLYCERIN 0.4 MG SL TAB SL PRN (16:15)
[2021-07-15] MEDS ORDERED: levoFLOXacin 500MG 100 ML IV ONE ×2 (16:15→21:00)
[2021-07-15] MEDS ORDERED: ONDANSETRON HCL 4 MG/2 ML VIAL IV PRN (16:15)
[2021-07-15] MEDS ORDERED: ACETAMINOPHEN 325 MG TAB PO PRN (16:15)
[2021-07-15] MEDS ORDERED: HYDROcodone-ACET 5/325MG TAB PO PRN (16:15)
[2021-07-15] MEDS ORDERED: MORPHINE SULFATE INJECTION 2 MG/ML SYRG IV PRN (16:15)
[2021-07-15] MEDS ORDERED: AZITHROMYCIN 500MG/ 250ML 250 ML IV ONE (16:30)
[2021-07-15] MEDS ORDERED: cefTRIAXone 1GM/50ML D5W 50 ML IV ONE (16:30)
[2021-07-15] MEDS: ALBUTEROL SULF 2.5 MG/0.5ML(0.5%) NEB SOLN NEB SCH (19:36)
[2021-07-15 20:16] LABS: BUN/Creatinine Ratio 7.1; Calcium 9.3 mg/dL (8.5-10.1); Potassium 5.1 mmol/L (3.5-5.1)
[2021-07-15 23:11] LABS: Calcium 9.4 mg/dL (8.5-10.1)
[2021-07-16 03:27] VITALS: BP 144/50
[2021-07-16 04:10] LABS: Potassium 5.3 mmol/L (3.5-5.1)
[2021-07-16 04:14] LABS: BUN/Creatinine Ratio 7.2
[2021-07-16] MEDS: ALBUTEROL SULF 2.5 MG/0.5ML(0.5%) NEB SOLN NEB SCH ×3 (06:00→19:07)
[2021-07-16] MEDS: SODIUM ZIRCONIUM CYCL 10 GM PAK PO SCH ×3 (06:11→22:30)
[2021-07-16] MEDS: CALCIUM W/VIT D (600MG/400IU) TAB PO SCH ×3 (06:11→22:30)
[2021-07-16] MEDS ORDERED: NIFEdipine ER 30 MG TAB PO SCH (07:00)
[2021-07-16] MEDS: CARVEDILOL 3.125 MG TAB PO SCH (07:45)
[2021-07-16] MEDS: ISOSORBIDE MONONITRATE ER 60 MG TAB PO SCH (07:46)
[2021-07-16] MEDS: NIFEdipine ER 30 MG TAB PO SCH (07:46)
[2021-07-16] MEDS ORDERED: SODIUM CHL 0.9% 1000 ML BAG XX ONE (08:00)
[2021-07-16] MEDS ORDERED: CALCIUM ACETATE 667 MG CAP PO SCH (08:00)
[2021-07-16] MEDS: GABAPENTIN 300 MG CAP PO SCH (10:00)
[2021-07-16] MEDS ORDERED: FAMOTIDINE 20 MG TAB PO SCH (10:00)
[2021-07-16] MEDS: CLOPIDOGREL BISULFATE 75 MG TAB PO SCH (10:02)
[2021-07-16] MEDS: ASPirin-EC 81 mg tab PO SCH (10:02)
[2021-07-16] MEDS: SEVELAMER 800 MG TAB PO SCH ×3 (10:03→18:24)
[2021-07-16] MEDS: FERROUS SULFATE 325mg EC TAB PO SCH (10:03)
[2021-07-16] MEDS: TERAZOSIN HCL 1 MG CAP PO SCH ×2 (10:06→22:30)
[2021-07-16] MEDS: HEPARIN SODIUM (PORCINE) 5000 UNITS/ML 1ML VIAL SC SCH ×2 (10:14→22:30)
[2021-07-16] MEDS: cloNIDine 0.2 mg/24hr 7DAY PATCH TD SCH ×2 (10:14→22:00)
[2021-07-16 11:50] LABS: Basophils # (auto) 0 10 ^3/uL (0-0.2); Monocytes # (auto) 0.2 10 ^3/uL (0-1.3); Monocytes % (auto) 5.9 % (0.0-12.0); Neutrophils # (auto) 2.9 10 ^3/uL (1.6-8.6); Nucleated Red Blood Cells % 0.1 %; Red Cell Distribution Width 17.3 % (11.8-14.3); White Blood Cell 3.6 10^3/uL (4.4-10.8)
[2021-07-16 11:51] LABS: Basophils % (auto) 0.8 % (0.0-2.0); Eosinophils # (auto) 0.1 10 ^3/uL (0-0.8); Eosinophils % (auto) 1.6 % (0.0-7.0); Hematocrit 18.2 % (41.0-53.0); Lymphocytes # (auto) 0.4 10 ^3/uL (0.4-5.4); Lymphocytes % (auto) 12.4 % (10.0-50.0); Mean Corpuscular Hemoglobin 36.2 pg (28.0-32.0); Mean Corpuscular Hgb Conc. 34.3 g/dL (32.0-36.0); Mean Corpuscular Volume 105.5 fL (80.0-100.0); Neutrophils % (auto) 79.3 % (37.0-80.0); Red Blood Cells 1.72 10^6/uL (4.5-5.90)
[2021-07-16 12:13] LABS: Hemoglobin 6.2 g/dL (13.5-17.5)
[2021-07-16 12:16] LABS: BUN/Creatinine Ratio 6.6; Calcium 8.6 mg/dL (8.5-10.1); Potassium 4.2 mmol/L (3.5-5.1)
[2021-07-16 13:58] VITALS: BP 166/53
[2021-07-16] MEDS: hydrALAZINE HCL 25 MG TAB PO SCH ×2 (14:18→22:30)
[2021-07-16 15:05] LABS: BUN/Creatinine Ratio 6.5; Calcium 8.6 mg/dL (8.5-10.1); Potassium 4.4 mmol/L (3.5-5.1)
[2021-07-16 16:00] VITALS: BP 146/46
[2021-07-16 17:51] VITALS: BP 141/55
[2021-07-16 18:14] VITALS: BP 138/51
[2021-07-16] MEDS: PANTOPRAZOLE 40 MG TAB PO SCH (18:24)
[2021-07-16] MEDS ORDERED: EPOETIN ALFA-EPBX 10,000 UNIT/1ML VIAL SC ONE (21:00)
[2021-07-16 21:05] VITALS: BP 140/60
[2021-07-16] MEDS ORDERED: ATORVASTATIN 20 MG TAB PO SCH (22:00)
[2021-07-17 00:57] LABS: Eosinophils # (auto) 0.1 10 ^3/uL (0-0.8); Monocytes # (auto) 0.2 10 ^3/uL (0-1.3); Red Blood Cells 1.94 10^6/uL (4.5-5.90); White Blood Cell 4.3 10^3/uL (4.4-10.8)
[2021-07-17 00:59] LABS: Basophils # (auto) 0 10 ^3/uL (0-0.2); Hematocrit 19.7 % (41.0-53.0); Lymphocytes # (auto) 0.7 10 ^3/uL (0.4-5.4); Lymphocytes % (auto) 15.8 % (10.0-50.0); Mean Corpuscular Hemoglobin 35.5 pg (28.0-32.0); Mean Corpuscular Hgb Conc. 34.9 g/dL (32.0-36.0); Mean Corpuscular Volume 101.9 fL (80.0-100.0); Monocytes % (auto) 5.2 % (0.0-12.0); Neutrophils # (auto) 3.3 10 ^3/uL (1.6-8.6)
[2021-07-17 01:11] LABS: BUN/Creatinine Ratio 6.8; Calcium 8.8 mg/dL (8.5-10.1); Potassium 5.1 mmol/L (3.5-5.1)
[2021-07-17 01:12] LABS: Hemoglobin 6.9 g/dL (13.5-17.5)
[2021-07-17] MEDS: hydrALAZINE HCL 25 MG TAB PO SCH ×2 (06:00→14:00)
[2021-07-17] MEDS: SODIUM ZIRCONIUM CYCL 10 GM PAK PO SCH ×2 (06:00→14:00)
[2021-07-17] MEDS: CALCIUM W/VIT D (600MG/400IU) TAB PO SCH ×2 (06:00→14:00)
[2021-07-17] MEDS: ALBUTEROL SULF 2.5 MG/0.5ML(0.5%) NEB SOLN NEB SCH ×2 (06:59→16:28)
[2021-07-17] MEDS: ISOSORBIDE MONONITRATE ER 60 MG TAB PO SCH (07:00)
[2021-07-17] MEDS: CARVEDILOL 3.125 MG TAB PO SCH (07:00)
[2021-07-17] MEDS: NIFEdipine ER 30 MG TAB PO SCH (07:00)
[2021-07-17] MEDS ORDERED: NIFEdipine ER 30 MG TAB PO SCH (07:00)
[2021-07-17] MEDS ORDERED: SODIUM CHL 0.9% 1000 ML BAG XX ONE (07:00)
[2021-07-17] MEDS: SEVELAMER 800 MG TAB PO SCH ×3 (08:10→18:00)
[2021-07-17] MEDS: GABAPENTIN 300 MG CAP PO SCH (08:11)
[2021-07-17] MEDS: FERROUS SULFATE 325mg EC TAB PO SCH (08:11)
[2021-07-17 09:00] VITALS: BP 155/63
[2021-07-17] MEDS ORDERED: FUROSEMIDE 40 MG/4 ML VIAL IV ONE (10:00)
[2021-07-17] MEDS: HEPARIN SODIUM (PORCINE) 5000 UNITS/ML 1ML VIAL SC SCH (10:00)
[2021-07-17] MEDS: CLOPIDOGREL BISULFATE 75 MG TAB PO SCH (10:21)
[2021-07-17] MEDS: ASPirin-EC 81 mg tab PO SCH (10:21)
[2021-07-17] MEDS: TERAZOSIN HCL 1 MG CAP PO SCH (10:22)
[2021-07-17] MEDS: cloNIDine 0.2 mg/24hr 7DAY PATCH TD SCH (10:25)
[2021-07-17 11:21] VITALS: BP 157/54
[2021-07-17 11:45] VITALS: BP 145/46
[2021-07-17 13:00] VITALS: BP 145/46
[2021-07-17 13:44] VITALS: BP 110/50
[2021-07-17] MEDS ORDERED: levoFLOXacin 250MG 50 ML IV SCH (16:15)
[2021-07-17 17:21] VITALS: BP 150/57
[2021-07-17] MEDS: PANTOPRAZOLE 40 MG TAB PO SCH (18:00)
[2021-07-18] MEDS ORDERED: SODIUM CHL 0.9% 1000 ML BAG XX ONE (07:00)
[2021-07-18] MEDS ORDERED: EPOETIN ALFA-EPBX 10,000 UNIT/1ML VIAL SC ONE (21:00)
== END 2021-07-17 18:15 | disposition left against medical advice (07) | DRG 194 ==
LOC: EDUNIT# 10:18 → ER 10:18 → EDBD 10:18 → OVERFLOW 16:04 → TELE-WESTW 07-16 12:56
PROVIDERS: ADMIT Internal Medicine; ATTEND Internal Medicine
PROC: 5A1D70Z Performance of Urinary Filtration, Intermittent, Less than 6 Hours Per Day (ICD-10-PCS; 2021-07-16)
PROC: 30233N1 Transfusion of Nonautologous Red Blood Cells into Peripheral Vein, Percutaneous Approach (ICD-10-PCS; principal; 2021-07-17)
DX: I13.2 Hypertensive heart and chronic kidney disease with heart failure and with stage 5 chronic kidney disease, or end stage renal disease (principal); J96.01 Acute respiratory failure with hypoxia; J18.9 Pneumonia, unspecified organism; N18.6 End stage renal disease; E44.1 Mild protein-calorie malnutrition; I42.9 Cardiomyopathy, unspecified; D63.1 Anemia in chronic kidney disease; E11.22 Type 2 diabetes mellitus with diabetic chronic kidney disease; I50.23 Acute on chronic systolic (congestive) heart failure; E11.40 Type 2 diabetes mellitus with diabetic neuropathy, unspecified; E87.5 Hyperkalemia; K21.9 Gastro-esophageal reflux disease without esophagitis; E21.3 Hyperparathyroidism, unspecified; E78.5 Hyperlipidemia, unspecified; D50.9 Iron deficiency anemia, unspecified; I25.10 Atherosclerotic heart disease of native coronary artery without angina pectoris; I34.0 Nonrheumatic mitral (valve) insufficiency; Z79.82 Long term (current) use of aspirin; Z82.49 Family history of ischemic heart disease and other diseases of the circulatory system; Z99.2 Dependence on renal dialysis; Z83.3 Family history of diabetes mellitus; Z87.891 Personal history of nicotine dependence; Z91.19 Patient's noncompliance with other medical treatment and regimen; Z98.61 Coronary angioplasty status; Z53.29 Procedure and treatment not carried out because of patient's decision for other reasons
CPT/HCPCS: 36415; 71045; 74176; 80048; 80053; 82962; 83880; 84100; 84154; 84484; 85025; 86850; 86900; 86901; 86920; 87426; 90935; 93005; 93306; 94640; 96365; 96375; 99291; G0378; J0696; J1815; J1956; J2405; J3490

== ENCOUNTER 2021-09-23 09:30 | Emergency (ER) | payer MEDICAID ==
[~2021-09-23] VITALS: Ht 190.5 cm; Wt 90.7 kg
[2021-09-23] MEDS ORDERED: ONDANSETRON ODT 4 MG TAB PO ONE (11:00)
[2021-09-23 11:02] LABS: Basophils # (auto) 0 10 ^3/uL (0-0.2); Eosinophils # (auto) 0 10 ^3/uL (0-0.8); Hematocrit 24.1 % (41.0-53.0); Hemoglobin 8.2 g/dL (13.5-17.5); Lymphocytes # (auto) 0.4 10 ^3/uL (0.4-5.4); Monocytes # (auto) 0.2 10 ^3/uL (0-1.3); Neutrophils # (auto) 3.7 10 ^3/uL (1.6-8.6); Red Blood Cells 2.31 10^6/uL (4.5-5.90); White Blood Cell 4.4 10^3/uL (4.4-10.8)
[2021-09-23 11:03] LABS: Eosinophils % (auto) 0.4 % (0.0-7.0); Lymphocytes % (auto) 9.2 % (10.0-50.0); Mean Corpuscular Hemoglobin 35.7 pg (28.0-32.0); Mean Corpuscular Hgb Conc. 34.2 g/dL (32.0-36.0); Mean Corpuscular Volume 104.2 fL (80.0-100.0); Monocytes % (auto) 4.3 % (0.0-12.0); Neutrophils % (auto) 85.1 % (37.0-80.0); Nucleated Red Blood Cells % 0.2 %; Red Cell Distribution Width 15.8 % (11.8-14.3)
[2021-09-23 11:04] LABS: Albumin 3.3 g/dL (3.4-5.0); Calcium 9.4 mg/dL (8.5-10.1); Potassium 5.3 mmol/L (3.5-5.1)
[2021-09-23 11:08] LABS: BUN/Creatinine Ratio 6.2; Bilirubin, Total 0.8 mg/dL (0.2-1.0); Total Protein 7.4 g/dL (6.4-8.2)
[2021-09-23] MEDS ORDERED: ONDANSETRON HCL 4 MG/2 ML VIAL ONE (13:10)
[2021-09-23] MEDS ORDERED: ONDANSETRON HCL 4 MG/2 ML VIAL IV ONE (13:15)
[2021-09-23] MEDS ORDERED: ONDA-144 PO (14:03)
[2021-09-23 14:30] VITALS: BP 176/80
== END 2021-09-23 14:45 | disposition home or self-care (01) ==
LOC: EDBD 09:30 → ER 09:30
DX: E11.22 Type 2 diabetes mellitus with diabetic chronic kidney disease (principal); I12.0 Hypertensive chronic kidney disease with stage 5 chronic kidney disease or end stage renal disease; N18.6 End stage renal disease; Z79.4 Long term (current) use of insulin; Z99.2 Dependence on renal dialysis
CPT/HCPCS: 36415; 71045; 74176; 80053; 84484; 85025; 87426; 93005; 99285; Q0162; J2405

== ENCOUNTER 2021-10-03 10:01 | Emergency (ER) | payer MEDICAID ==
[~2021-10-03] VITALS: Ht 193 cm; Wt 93.0 kg
[~2021-10-03 10:01] MED LIST changes: +ONDA-144 PO
[2021-10-03 10:04] VITALS: BP 126/35
[2021-10-03 11:37] LABS: Basophils # (auto) 0 10 ^3/uL (0-0.2); Eosinophils # (auto) 0.1 10 ^3/uL (0-0.8); Hemoglobin 7.3 g/dL (13.5-17.5); Monocytes # (auto) 0.2 10 ^3/uL (0-1.3); Neutrophils # (auto) 2.3 10 ^3/uL (1.6-8.6); Nucleated Red Blood Cells % 0.3 %; White Blood Cell 3.1 10^3/uL (4.4-10.8)
[2021-10-03 11:40] LABS: Basophils % (auto) 1.1 % (0.0-2.0); Hematocrit 21.4 % (41.0-53.0); Lymphocytes # (auto) 0.5 10 ^3/uL (0.4-5.4); Lymphocytes % (auto) 17.5 % (10.0-50.0); Mean Corpuscular Hemoglobin 35.4 pg (28.0-32.0); Monocytes % (auto) 5.3 % (0.0-12.0); Neutrophils % (auto) 73.1 % (37.0-80.0); Red Blood Cells 2.06 10^6/uL (4.5-5.90); Red Cell Distribution Width 15.6 % (11.8-14.3)
[2021-10-03 11:56] LABS: INR 1.1 (0.9-1.15); Partial Thromboplastin Time 26.2 sec (23.6-33.0)
[2021-10-03 11:57] LABS: Albumin 3.3 g/dL (3.4-5.0); Potassium 3.7 mmol/L (3.5-5.1)
[2021-10-03 12:03] LABS: BUN/Creatinine Ratio 5.1; Bilirubin, Total 0.7 mg/dL (0.2-1.0)
== END 2021-10-03 16:19 | disposition left against medical advice (07) ==
LOC: ER 10:01
DX: R79.9 Abnormal finding of blood chemistry, unspecified (principal); E11.22 Type 2 diabetes mellitus with diabetic chronic kidney disease; I13.2 Hypertensive heart and chronic kidney disease with heart failure and with stage 5 chronic kidney disease, or end stage renal disease; N18.6 End stage renal disease; I50.89 Other heart failure; K21.9 Gastro-esophageal reflux disease without esophagitis; E78.5 Hyperlipidemia, unspecified; Z87.891 Personal history of nicotine dependence
CPT/HCPCS: 36415; 80053; 84484; 85025; 85610; 85730; 86850; 86900; 86901; 93005

== ENCOUNTER 2021-11-04 22:25 | Inpatient (IN) | payer MEDICAID ==
[~2021-11-04] VITALS: Ht 193 cm; Wt 97.0 kg
[2021-11-04 23:44] LABS: Basophils # (auto) 0 10 ^3/uL (0-0.2); Basophils % (auto) 1.1 % (0.0-2.0); Eosinophils # (auto) 0.1 10 ^3/uL (0-0.8); Eosinophils % (auto) 1.8 % (0.0-7.0); Hematocrit 17.4 % (41.0-53.0); Lymphocytes # (auto) 0.6 10 ^3/uL (0.4-5.4); Lymphocytes % (auto) 14.8 % (10.0-50.0); Mean Corpuscular Hemoglobin 35.6 pg (28.0-32.0); Mean Corpuscular Hgb Conc. 33.8 g/dL (32.0-36.0); Mean Corpuscular Volume 105.1 fL (80.0-100.0); Monocytes # (auto) 0.2 10 ^3/uL (0-1.3); Monocytes % (auto) 4.8 % (0.0-12.0); Neutrophils # (auto) 3.4 10 ^3/uL (1.6-8.6); Neutrophils % (auto) 77.5 % (37.0-80.0); Nucleated Red Blood Cells % 0.1 %; Red Blood Cells 1.65 10^6/uL (4.5-5.90); Red Cell Distribution Width 16.6 % (11.8-14.3); White Blood Cell 4.3 10^3/uL (4.4-10.8)
[2021-11-04 23:49] LABS: Hemoglobin 5.9 g/dL (13.5-17.5)
[2021-11-05] VITALS (15 sets, daily range): BP systolic 135–169; BP diastolic 37–65
[2021-11-05] LABS: Calcium 9.2 mg/dL (8.5-10.1)
[2021-11-05 00:03] LABS: BUN/Creatinine Ratio 6.2
[2021-11-05 00:08] LABS: Bilirubin, Total 0.7 mg/dL (0.2-1.0); Total Protein 6.7 g/dL (6.4-8.2)
[2021-11-05 00:32] LABS: Potassium 5.8 mmol/L (3.5-5.1)
[2021-11-05] MEDS ORDERED: InsuLIN REG 1unit/0.01ml Soln (100units/ml) IV ONE (01:15)
[2021-11-05] MEDS ORDERED: DEXTROSE (50%) 50ML SYRG IV ONE (01:15)
[2021-11-05] MEDS ORDERED: ALBUTEROL SULF 2.5 MG/0.5ML(0.5%) NEB SOLN NEB ONE ×2 (01:15)
[2021-11-05] MEDS ORDERED: DEXTROSE (50%) 50ML SYRG IV PRN (01:30)
[2021-11-05] MEDS ORDERED: NITROGLYCERIN 0.4 MG SL TAB SL PRN (01:30)
[2021-11-05] MEDS ORDERED: CALCIUM GLUC 1,000mg/50ml-NS 50 ML IV ONE (01:30)
[2021-11-05] MEDS ORDERED: MORPHINE SULFATE INJECTION 2 MG/ML SYRG IV PRN (01:30)
[2021-11-05] MEDS ORDERED: SODIUM ZIRCONIUM CYCL 10 GM PAK PO ONE (01:30)
[2021-11-05] MEDS ORDERED: ACETAMINOPHEN 325 MG TAB PO PRN (01:30)
[2021-11-05] MEDS: cloNIDine HCL 0.1 MG TAB PO SCH ×3 (06:29→21:41)
[2021-11-05] MEDS: ACCU-CHEK COMFORT CURVE STRIP VI SCH ×4 (06:49→21:28)
[2021-11-05] MEDS: InsuLIN REG 1unit/0.01ml Soln (100units/ml) SC SCH ×4 (06:49→21:29)
[2021-11-05] MEDS ORDERED: LISINOPRIL 20 MG TAB PO SCH ×2 (10:00→17:51)
[2021-11-05] MEDS: NIFEdipine ER 30 MG TAB PO SCH (10:00)
[2021-11-05] MEDS: CARVEDILOL 3.125 MG TAB PO SCH ×2 (10:00→21:42)
[2021-11-05] MEDS: ASPirin 81 mg TAB PO SCH (10:00)
[2021-11-05] MEDS: PANTOPRAZOLE 40 MG TAB PO SCH (10:00)
[2021-11-05] MEDS: CLOPIDOGREL BISULFATE 75 MG TAB PO SCH (10:00)
[2021-11-05] MEDS: SEVELAMER 800 MG TAB PO SCH ×3 (10:07→18:26)
[2021-11-05 11:38] LABS: Hemoglobin 7.9 g/dL (13.5-17.5)
[2021-11-05 11:41] LABS: Hematocrit 22.6 % (41.0-53.0)
[2021-11-05] MEDS ORDERED: SODIUM CHL 0.9% 1000 ML BAG XX ONE (13:00)
[2021-11-05] MEDS ORDERED: ASPirin 81 mg TAB PO ONE (17:45)
[2021-11-05] MEDS ORDERED: hydrALAZINE HCL 20 MG/ML VL IV PRN (17:45)
[2021-11-05] MEDS ORDERED: NIFEdipine ER 30 MG TAB PO ONE (17:45)
[2021-11-05] MEDS ORDERED: LISINOPRIL 20 MG TAB PO ONE (17:45)
[2021-11-05] MEDS ORDERED: CLOPIDOGREL BISULFATE 75 MG TAB PO ONE (17:45)
[2021-11-05] MEDS ORDERED: CARVEDILOL 3.125 MG TAB PO ONE (17:45)
[2021-11-05 19:55] LABS: Basophils # (auto) 0.1 10 ^3/uL (0-0.2); Basophils % (auto) 1.7 % (0.0-2.0); Eosinophils # (auto) 0 10 ^3/uL (0-0.8); Hematocrit 21.5 % (41.0-53.0); Hemoglobin 7.5 g/dL (13.5-17.5); Lymphocytes # (auto) 0.3 10 ^3/uL (0.4-5.4); Lymphocytes % (auto) 7.7 % (10.0-50.0); Mean Corpuscular Hemoglobin 34.6 pg (28.0-32.0); Mean Corpuscular Hgb Conc. 34.9 g/dL (32.0-36.0); Mean Corpuscular Volume 99.2 fL (80.0-100.0); Monocytes # (auto) 0.2 10 ^3/uL (0-1.3); Neutrophils # (auto) 3.6 10 ^3/uL (1.6-8.6); Neutrophils % (auto) 84.6 % (37.0-80.0); Nucleated Red Blood Cells % 0.1 %; Red Blood Cells 2.17 10^6/uL (4.5-5.90); Red Cell Distribution Width 19.1 % (11.8-14.3); White Blood Cell 4.3 10^3/uL (4.4-10.8)
[2021-11-05 20:08] LABS: Potassium 4.4 mmol/L (3.5-5.1)
[2021-11-05 20:12] LABS: BUN/Creatinine Ratio 5.6; Calcium 8.6 mg/dL (8.5-10.1)
[2021-11-05] MEDS ORDERED: EPOETIN ALFA-EPBX 4,000 UNIT/ML VIAL SC ONE (21:00)
[2021-11-05] MEDS: ATORVASTATIN 20 MG TAB PO SCH (21:43)
[2021-11-05] MEDS: ALBUTEROL SULF 2.5 MG/0.5ML(0.5%) NEB SOLN NEB PRN (22:55)
[2021-11-06 05:18] VITALS: BP 147/53
[2021-11-06] MEDS: cloNIDine HCL 0.1 MG TAB PO SCH ×3 (05:54→21:01)
[2021-11-06] MEDS: GABAPENTIN 300 MG CAP PO SCH (05:55)
[2021-11-06] MEDS: ACCU-CHEK COMFORT CURVE STRIP VI SCH ×4 (05:55→21:14)
[2021-11-06] MEDS: InsuLIN REG 1unit/0.01ml Soln (100units/ml) SC SCH ×4 (05:55→21:15)
[2021-11-06 06:08] LABS: Eosinophils # (auto) 0.1 10 ^3/uL (0-0.8); Hemoglobin 8.4 g/dL (13.5-17.5); Lymphocytes # (auto) 0.6 10 ^3/uL (0.4-5.4); Monocytes # (auto) 0.2 10 ^3/uL (0-1.3)
[2021-11-06 06:10] LABS: Basophils # (auto) 0.1 10 ^3/uL (0-0.2); Eosinophils % (auto) 1.9 % (0.0-7.0); Hematocrit 23.8 % (41.0-53.0); Lymphocytes % (auto) 10.7 % (10.0-50.0); Mean Corpuscular Hgb Conc. 35.3 g/dL (32.0-36.0); Mean Corpuscular Volume 99.2 fL (80.0-100.0); Monocytes % (auto) 4.6 % (0.0-12.0); Neutrophils # (auto) 4.3 10 ^3/uL (1.6-8.6); Neutrophils % (auto) 81.8 % (37.0-80.0); Red Cell Distribution Width 18.8 % (11.8-14.3); White Blood Cell 5.3 10^3/uL (4.4-10.8)
[2021-11-06 06:29] LABS: Calcium 8.8 mg/dL (8.5-10.1); Potassium 5.3 mmol/L (3.5-5.1)
[2021-11-06 06:33] LABS: BUN/Creatinine Ratio 7.2
[2021-11-06 09:00] VITALS: BP 153/55
[2021-11-06] MEDS: FERROUS SULFATE 325mg EC TAB PO SCH (09:37)
[2021-11-06] MEDS: ASPirin 81 mg TAB PO SCH (09:39)
[2021-11-06] MEDS: SEVELAMER 800 MG TAB PO SCH ×3 (09:39→17:13)
[2021-11-06] MEDS: FOLIC ACID 1 MG TAB PO SCH (09:39)
[2021-11-06] MEDS: CLOPIDOGREL BISULFATE 75 MG TAB PO SCH (09:40)
[2021-11-06] MEDS: CARVEDILOL 3.125 MG TAB PO SCH ×2 (09:40→21:02)
[2021-11-06] MEDS: PANTOPRAZOLE 40 MG TAB PO SCH (09:41)
[2021-11-06] MEDS: NIFEdipine ER 30 MG TAB PO SCH (09:41)
[2021-11-06 13:08] VITALS: BP 122/51
[2021-11-06 17:30] VITALS: BP 123/52
[2021-11-06 18:53] LABS: INR 1.16 (0.9-1.15); Partial Thromboplastin Time 28.9 sec (23.6-33.0)
[2021-11-06 20:00] VITALS: BP 136/47
[2021-11-06] MEDS: ATORVASTATIN 20 MG TAB PO SCH (21:02)
[2021-11-06 22:31] VITALS: BP 136/47
[2021-11-07] VITALS (7 sets, daily range): BP systolic 136–149; BP diastolic 46–62
[2021-11-07] MEDS: GABAPENTIN 300 MG CAP PO SCH (05:39)
[2021-11-07] MEDS: cloNIDine HCL 0.1 MG TAB PO SCH ×3 (05:39→22:54)
[2021-11-07] MEDS: ACCU-CHEK COMFORT CURVE STRIP VI SCH ×4 (05:40→22:59)
[2021-11-07] MEDS: InsuLIN REG 1unit/0.01ml Soln (100units/ml) SC SCH ×4 (05:40→22:00)
[2021-11-07] MEDS: SEVELAMER 800 MG TAB PO SCH ×2 (08:00→12:00)
[2021-11-07] MEDS: FERROUS SULFATE 325mg EC TAB PO SCH (08:00)
[2021-11-07 08:48] LABS: Basophils # (auto) 0.1 10 ^3/uL (0-0.2); Eosinophils # (auto) 0.1 10 ^3/uL (0-0.8); Mean Corpuscular Hemoglobin 34.8 pg (28.0-32.0); Monocytes # (auto) 0.2 10 ^3/uL (0-1.3); Red Cell Distribution Width 18.8 % (11.8-14.3)
[2021-11-07 08:50] LABS: Basophils % (auto) 1.5 % (0.0-2.0); Eosinophils % (auto) 2.4 % (0.0-7.0); Hematocrit 22.7 % (41.0-53.0); Hemoglobin 7.8 g/dL (13.5-17.5); Lymphocytes # (auto) 0.6 10 ^3/uL (0.4-5.4); Lymphocytes % (auto) 9.2 % (10.0-50.0); Mean Corpuscular Hgb Conc. 34.5 g/dL (32.0-36.0); Monocytes % (auto) 3.1 % (0.0-12.0); Neutrophils % (auto) 83.8 % (37.0-80.0); Red Blood Cells 2.25 10^6/uL (4.5-5.90)
[2021-11-07 09:18] LABS: BUN/Creatinine Ratio 8.3; Calcium 8.6 mg/dL (8.5-10.1)
[2021-11-07 09:30] LABS: Potassium 6.1 mmol/L (3.5-5.1)
[2021-11-07] MEDS: ASPirin 81 mg TAB PO SCH (10:00)
[2021-11-07] MEDS: NIFEdipine ER 30 MG TAB PO SCH (10:00)
[2021-11-07] MEDS: PANTOPRAZOLE 40 MG TAB PO SCH (10:00)
[2021-11-07] MEDS: CARVEDILOL 3.125 MG TAB PO SCH ×2 (10:00→22:53)
[2021-11-07] MEDS: CLOPIDOGREL BISULFATE 75 MG TAB PO SCH (10:00)
[2021-11-07] MEDS: FOLIC ACID 1 MG TAB PO SCH (10:00)
[2021-11-07] MEDS: ATORVASTATIN 20 MG TAB PO SCH (22:53)
[2021-11-08] VITALS (7 sets, daily range): BP systolic 119–146; BP diastolic 44–58
[2021-11-08 06:07] LABS: Eosinophils # (auto) 0.1 10 ^3/uL (0-0.8); Lymphocytes # (auto) 0.6 10 ^3/uL (0.4-5.4); Monocytes # (auto) 0.2 10 ^3/uL (0-1.3); Neutrophils # (auto) 5.1 10 ^3/uL (1.6-8.6); Neutrophils % (auto) 84.1 % (37.0-80.0)
[2021-11-08 06:09] LABS: Basophils # (auto) 0 10 ^3/uL (0-0.2); Basophils % (auto) 0.8 % (0.0-2.0); Hematocrit 20.3 % (41.0-53.0); Lymphocytes % (auto) 10.1 % (10.0-50.0); Mean Corpuscular Hemoglobin 34.5 pg (28.0-32.0); Mean Corpuscular Hgb Conc. 34.6 g/dL (32.0-36.0); Mean Corpuscular Volume 99.9 fL (80.0-100.0); Nucleated Red Blood Cells % 0.1 %; Red Blood Cells 2.04 10^6/uL (4.5-5.90)
[2021-11-08 06:19] LABS: BUN/Creatinine Ratio 8.2; Calcium 8.8 mg/dL (8.5-10.1); Phosphorus 5.3 mg/dL (2.5-4.90); Potassium 5.5 mmol/L (3.5-5.1)
[2021-11-08] MEDS: GABAPENTIN 300 MG CAP PO SCH (06:52)
[2021-11-08] MEDS: cloNIDine HCL 0.1 MG TAB PO SCH ×3 (06:52→22:03)
[2021-11-08] MEDS: ACCU-CHEK COMFORT CURVE STRIP VI SCH ×4 (06:55→22:03)
[2021-11-08] MEDS: InsuLIN REG 1unit/0.01ml Soln (100units/ml) SC SCH ×4 (06:56→22:00)
[2021-11-08] MEDS: SEVELAMER 800 MG TAB PO SCH ×4 (08:00→18:39)
[2021-11-08] MEDS ORDERED: IOHEXOL 350 MG/ML 100ML IJ ONE (08:11)
[2021-11-08] MEDS: CLOPIDOGREL BISULFATE 75 MG TAB PO SCH (10:00)
[2021-11-08] MEDS ORDERED: LIDOCAINE 2%HCL (LOCAL ANESTH.) INJ 10ml MDV ONE (10:05)
[2021-11-08] MEDS ORDERED: LIDOCAINE 2%HCL (LOCAL ANESTH.) INJ 20ML MDV ONE (10:07)
[2021-11-08] MEDS: FOLIC ACID 1 MG TAB PO SCH (11:50)
[2021-11-08] MEDS: FERROUS SULFATE 325mg EC TAB PO SCH (11:50)
[2021-11-08] MEDS: CARVEDILOL 3.125 MG TAB PO SCH ×2 (11:51→22:03)
[2021-11-08] MEDS: PANTOPRAZOLE 40 MG TAB PO SCH (11:52)
[2021-11-08] MEDS: NIFEdipine ER 30 MG TAB PO SCH (11:52)
[2021-11-08] MEDS ORDERED: fentaNYL CITRATE 100 MCG/2 ML VL IV ONE (12:30)
[2021-11-08] MEDS ORDERED: LIDOCAINE VISCOUS 2% 15ML UD MT ONE (12:30)
[2021-11-08] MEDS ORDERED: MIDAZOLAM HCL 2MG/2ML 2ml VIAL (1mg/ml) IV ONE (12:30)
[2021-11-08] MEDS: ASPirin 81 mg TAB PO SCH (12:33)
[2021-11-08] MEDS: ATORVASTATIN 20 MG TAB PO SCH (22:03)
[2021-11-08 23:25] LABS: Hematocrit 20.8 % (41.0-53.0)
[2021-11-09] VITALS (11 sets, daily range): BP systolic 113–147; BP diastolic 42–59
[2021-11-09] MEDS: cloNIDine HCL 0.1 MG TAB PO SCH ×3 (06:00→21:53)
[2021-11-09] MEDS: GABAPENTIN 300 MG CAP PO SCH (06:24)
[2021-11-09] MEDS: InsuLIN REG 1unit/0.01ml Soln (100units/ml) SC SCH ×4 (06:25→21:54)
[2021-11-09] MEDS: ACCU-CHEK COMFORT CURVE STRIP VI SCH ×4 (06:25→21:54)
[2021-11-09] MEDS: SEVELAMER 800 MG TAB PO SCH ×3 (08:00→18:00)
[2021-11-09] MEDS ORDERED: SODIUM CHL 0.9% 1000 ML BAG XX ONE (08:00)
[2021-11-09] MEDS: FERROUS SULFATE 325mg EC TAB PO SCH (08:00)
[2021-11-09 08:25] LABS: Hematocrit 20.8 % (41.0-53.0)
[2021-11-09] MEDS: FOLIC ACID 1 MG TAB PO SCH (10:00)
[2021-11-09] MEDS: CARVEDILOL 3.125 MG TAB PO SCH ×2 (10:00→21:52)
[2021-11-09] MEDS: PANTOPRAZOLE 40 MG TAB PO SCH (10:00)
[2021-11-09] MEDS: CLOPIDOGREL BISULFATE 75 MG TAB PO SCH (10:00)
[2021-11-09] MEDS: NIFEdipine ER 30 MG TAB PO SCH (10:00)
[2021-11-09] MEDS: ASPirin 81 mg TAB PO SCH (10:00)
[2021-11-09] MEDS ORDERED: CAR3125T PO (16:27)
[2021-11-09] MEDS ORDERED: DOXY-338 PO (16:28)
[2021-11-09] MEDS: DOXYCYCLINE 100 MG TAB/CAP PO SCH ×2 (16:45→21:53)
[2021-11-09 16:57] LABS: Hematocrit 22.1 % (41.0-53.0); Hemoglobin 7.4 g/dL (13.5-17.5)
[2021-11-09 17:12] LABS: BUN/Creatinine Ratio 9.3; Calcium 8.7 mg/dL (8.5-10.1); Potassium 4.8 mmol/L (3.5-5.1)
[2021-11-09] MEDS ORDERED: EPOETIN ALFA-EPBX 4,000 UNIT/ML VIAL SC ONE (21:00)
[2021-11-09] MEDS: ATORVASTATIN 20 MG TAB PO SCH (21:53)
[2021-11-10 01:14] VITALS: BP 127/43
[2021-11-10 05:00] VITALS: BP 130/48
[2021-11-10 06:00] VITALS: BP 125/46
[2021-11-10] MEDS: GABAPENTIN 300 MG CAP PO SCH (06:08)
[2021-11-10] MEDS: ACCU-CHEK COMFORT CURVE STRIP VI SCH ×2 (06:08→11:38)
[2021-11-10] MEDS: cloNIDine HCL 0.1 MG TAB PO SCH ×2 (06:08→14:28)
[2021-11-10] MEDS: InsuLIN REG 1unit/0.01ml Soln (100units/ml) SC SCH ×2 (06:09→11:30)
[2021-11-10] MEDS ORDERED: SODIUM CHLORIDE 0.9 % NEB SOLN 3ML NEB ONE (06:42)
[2021-11-10] MEDS: ALBUTEROL SULF 2.5 MG/0.5ML(0.5%) NEB SOLN NEB PRN (07:34)
[2021-11-10] MEDS: NIFEdipine ER 30 MG TAB PO SCH (08:52)
[2021-11-10] MEDS: ASPirin 81 mg TAB PO SCH (08:53)
[2021-11-10] MEDS: FERROUS SULFATE 325mg EC TAB PO SCH (08:53)
[2021-11-10] MEDS: SEVELAMER 800 MG TAB PO SCH ×2 (08:53→14:28)
[2021-11-10] MEDS: CLOPIDOGREL BISULFATE 75 MG TAB PO SCH (08:53)
[2021-11-10] MEDS: DOXYCYCLINE 100 MG TAB/CAP PO SCH (08:54)
[2021-11-10] MEDS: FOLIC ACID 1 MG TAB PO SCH (08:55)
[2021-11-10] MEDS: PANTOPRAZOLE 40 MG TAB PO SCH (08:55)
[2021-11-10] MEDS: CARVEDILOL 3.125 MG TAB PO SCH (08:56)
[2021-11-10 12:43] VITALS: BP 144/47
[2021-11-10 17:12] VITALS: BP 133/45
== END 2021-11-10 16:58 | disposition home health service (06) | DRG 190 ==
LOC: ER 22:27 → TELE 11-05 01:21 → TELE-WESTW 11-05 04:05
PROVIDERS: ADMIT Nurse Practitioner; ATTEND Internal Medicine
PROC: 30233N1 Transfusion of Nonautologous Red Blood Cells into Peripheral Vein, Percutaneous Approach (ICD-10-PCS; principal; 2021-11-05)
PROC: 5A1D70Z Performance of Urinary Filtration, Intermittent, Less than 6 Hours Per Day (ICD-10-PCS; 2021-11-05)
PROC: 5A1D70Z Performance of Urinary Filtration, Intermittent, Less than 6 Hours Per Day (ICD-10-PCS; 2021-11-07)
PROC: 0W9B3ZZ Drainage of Left Pleural Cavity, Percutaneous Approach (ICD-10-PCS; 2021-11-08)
PROC: B24BZZ4 Ultrasonography of Heart with Aorta, Transesophageal (ICD-10-PCS; 2021-11-09)
PROC: 5A1D70Z Performance of Urinary Filtration, Intermittent, Less than 6 Hours Per Day (ICD-10-PCS; 2021-11-09)
DX: I21.4 Non-ST elevation (NSTEMI) myocardial infarction (principal); J96.01 Acute respiratory failure with hypoxia; I50.43 Acute on chronic combined systolic (congestive) and diastolic (congestive) heart failure; D61.818 Other pancytopenia; I27.20 Pulmonary hypertension, unspecified; N18.6 End stage renal disease; E87.1 Hypo-osmolality and hyponatremia; D63.1 Anemia in chronic kidney disease; Z20.822 Contact with and (suspected) exposure to COVID-19; I13.2 Hypertensive heart and chronic kidney disease with heart failure and with stage 5 chronic kidney disease, or end stage renal disease; E11.22 Type 2 diabetes mellitus with diabetic chronic kidney disease; E11.40 Type 2 diabetes mellitus with diabetic neuropathy, unspecified; E87.5 Hyperkalemia; K21.9 Gastro-esophageal reflux disease without esophagitis; E78.5 Hyperlipidemia, unspecified; I08.3 Combined rheumatic disorders of mitral, aortic and tricuspid valves; I25.10 Atherosclerotic heart disease of native coronary artery without angina pectoris; M89.9 Disorder of bone, unspecified; N25.81 Secondary hyperparathyroidism of renal origin; Z79.02 Long term (current) use of antithrombotics/antiplatelets; Z82.49 Family history of ischemic heart disease and other diseases of the circulatory system; Z83.3 Family history of diabetes mellitus; Z87.891 Personal history of nicotine dependence; Z95.5 Presence of coronary angioplasty implant and graft; Z99.2 Dependence on renal dialysis
CPT/HCPCS: 36415; 36430; 36600; 71045; 71275; 76604; 76942; 80048; 80053; 82805; 82962; 83880; 83986; 84100; 84484; 85014; 85018; 85025; 85379; 85610; 85730; 86850; 86900; 86901; 86920; 87205; 87426; 89051; 90935; 93005; 93312; 94640; 96365; 96375; 99152; G0378; J1815; J2001; J2250